=== PATIENT | female | born 1985 | race Caucasian/White ===

== ENCOUNTER → 2018-10-26 15:37 | Outpatient (CLI) | payer OTHER, SELFPAY ==
[2018-10-26 16:01] LABS: Absolute Lymphocyte Count 3.18 X10^3/ul (0.83-4.51); Absolute Neutrophil Count 6.4 X10^3/uL (2.0-7.7); Basophil# 0.03 X10^3/uL; Basophil% 0.3 % (0-1); Eosinophil# 0.17 X10^3/uL; Eosinophils% 1.7 % (0-5); Hematocrit 37.9 % (37-47); Hemoglobin 12.7 g/dl (12.0-15.0); Lymphocyte # 3.18 X10^3/ul (4.0); Lymphocyte % 30.9 % (19-41); Mean Corp Hgb Conc 33.5 g/gl (32-36); Mean Corpuscular Hgb 30.5 pg (27.0-32.0); Mean Corpuscular Volume 91.1 fL (81-99); Mean Platelet Vol. 9.2 fl (6.2-12.0); Monocyte# 0.45 X10^3/uL; Monocyte% 4.4 % (0-10); Neutrophil # 6.42 X10^3/uL (2.7-7.7); Neutrophil % 62.3 % (47-70); Platelet Count 355 K/mm3 (150-450); RBC Distribution Width CV 16.8 % (11.6-14.6); RBC Distribution Width SD 55.9 fl (35.1-43.9); Red Blood Count 4.16 M/mm3 (4.2-5.4); White Blood Count 10.3 K/mm3 (4.4-11.0)
[2018-10-26 16:18] LABS: POSITIVE COUNT NO; POSITIVE DIFFERENTIAL NO; POSITIVE MORPHOLOGY NO
[2018-10-26 16:36] LABS: Ferritin 98 ng/mL (8-252); Iron 93 ug/dL (50-170); Iron Binding Capacity,Total 301 ug/dL (250-450); PERCENT IRON SATURATION 30.9 % (15.0-55.0)
[2018-10-26 16:46] LABS: Vitamin B12 513 pg/mL (211-911)
== END ==
PROVIDERS: Family Provider Family Medicine; PCP Family Medicine; Referring Provider Internal Medicine Hematology & Oncology; Visit Provider Internal Medicine Hematology & Oncology
DX: D51.9 Vitamin B12 deficiency anemia, unspecified (principal)
CPT/HCPCS: 36415; 82607; 82728; 83540; 83550; 85025

== ENCOUNTER → 2019-05-09 | Outpatient (CLI) | payer OTHER, SELFPAY ==
[2018-11-10 10:37] VITALS: BMI 33.4
--- NOTE | 2019-05-09 | IMM_PTH ---
PATIENT: KIA OLIVIER LOC: [facility] U#:[id number] AGE/SX: 34/F ROOM: RE05/09/[address]: Dr. Yoanna Jarquin MD : 1985 BED: DIS: 05/09/2019 SPEC #: [id number] RECD: 05/12/19 07:23 STATUS: LISA REQ #: [id number] COLE: 05/09/19 00:[address]: Yoanna Jarquin DEPT: IMMUNOHISTOCHEMISTRY RECD BY: Deysi Greer ENTERED: 05/12/19 07:25 SP TYPE: IMMUNO OTHR DR: Dr. Bong La MD Tissues: A - Thyroid gland, NOS C - Thyroid gland, NOS Procedures: HBME (initial) CD56 (add) CK19 (add) GAL-3 (add) PHYSICIAN & INSTITUTION [place] [id number] SPECIMEN INFORMATION: Tissue Source: A - Right thyroid, C - Left thyroid Clinical Info: Bilateral thyroid nodules Specimen Number: [id number] A & C CPT code: 42397 x2, 74618 x6 METHODOLOGY: Deparaffinized sections of prefer/formalin-fixed tissue or PAP/DQ stained slides are incubated with monoclonal/polyclonal antibodies/oligonucleotide probes. Localization is made via biotin free immunoperoxidase method. Appropriate controls are performed and reacted as expected. Results on target cell population are indicated in the following table: RESULTS: ANTIBODY / CLONE RESULT Block A GAL3 (9C4) negative HBME1 (HBME-1) negative CK19 (A53-B/A2.26) positive, focal CD56 (123C3.D5) positive Block B GAL3 (9C4) negative HBME1 (HBME-1) positive CK19 (A53-B/A2.26) positive CD56 (123C3.D5) positive, focal These tests were developed and their performance characteristics determined by [facility]. They may not have been cleared or approved by the U.S. Food and Drug Administration. The FDA has determined that such clearance or approval is not necessary. INTERPRETATION: A. Right thyroid, ultrasound-guided FNA: Atypical follicular cells of undetermined significance. B. Left thyroid, ultrasound-guided FNA: Atypical follicular cells of undetermined significance. SJ:linnea 05/15/19 Case has been reviewed in consultation with Dr. Kidd who concurs with the above diagnosis. IDC:[email or web address]
--- NOTE | 2019-05-09 | FLU_PTH ---
PATIENT: KIA OLIVIER LOC: [facility] U#:[id number] AGE/SX: 34/F ROOM: RE05/09/[address]: Dr. Yoanna Jarqiun MD : 1985 BED: DIS: 05/09/2019 SPEC #: [id number] RECD: 05/09/19 13:55 STATUS: LISA RERadha #: [id number] COLE: 05/09/19 00:[address]: Yoanna Jarquin DEPT: CYTOLOGY RECD BY: Luis Antonio Butler ENTERED: 05/09/19 13:56 SP TYPE: Fluid OTHR DR: Dr. Bong La MD Tissues: A - Thyroid gland, NOS B - Thyroid gland, NOS C - Thyroid gland, NOS D - Thyroid gland, NOS Procedures: Special Stain Group II Surgery Specimen Level IV Cytospin Fluid HEADER OPERATION: Ultrasound-guided fine needle aspiration, bilateral thyroid PRE-OP DIAGNOSIS: Bilateral thyroid nodules TISSUE SUBMITTED: A - Right thyroid FNA fluid for cytology, B - Right thyroid FNA slides x6, C - Left thyroid FNA fluid for cytology, D - Left thyroid FNA slides x8 DIAGNOSIS CYTOLOGY A. Right thyroid nodule fluid for cytology (cytospin and cell block): Atypical follicular cells of undetermined significance. See comment. B. Right thyroid nodule, FNA (smears): Atypical follicular cells of undetermined significance.. Adequate for evaluation. C. Left thyroid nodule fluid for cytology (cytospin and cell block): Atypical follicular cells of undetermined significance. See comment. D.. Left thyroid nodule, FNA (smears): Atypical follicular cells of undetermined significance. Adequate for evaluation. SJ:linnea 05/10/19 COMMENT Correlation with clinical, radiologic findings and appropriate follow up are necessary. A & C. Immunohistochemistry ([id number]) supports the above diagnosis. D. Abundant colloid is also noted. Correlation with clinical, radiologic findings and appropriate follow up are necessary. Case has been reviewed in consultation with Dr. Kidd who concurs with the above diagnosis. IDC:AM CYTOLOGY STUDY Slides are reviewed. CYTOLOGY GROSS A - Received is 35 ml of cloudy brown fluid labeled with the patient's name and and designated per the requisition as right thyroid. Submitted for cytology preparation including cell block. B - Received are six smears labeled with the patient's name and designated per the requisition as right thyroid. Submitted for staining. C - Received is 35 ml of cloudy brown fluid labeled with the patient's name and and designated per the requisition as left thyroid. Submitted for cytology preparation including cell block. D - Received are eight smears labeled with the patient's name and designated per the requisition as left thyroid. Submitted for staining. 05/09/19 TC:5 CPT: 60066 x2, 95466 x2, 79157 x2
== END | disposition home or self-care (01) ==
LOC: LAB 12:10 → LABSPEC 12:14
PROVIDERS: Family Provider Family Medicine; PCP Family Medicine; Referring Provider Surgery; Visit Provider Surgery
DX: E04.2 Nontoxic multinodular goiter (principal)
CPT/HCPCS: 88108; 88305; 88313; 88341; 88342

== ENCOUNTER 2019-06-05 07:24 | Observation (INO) | payer OTHER, SELFPAY ==
[2018-11-10 10:37] VITALS: BMI 33.4
--- NOTE | 2019-06-04 16:40 | HP.PCM_ITS ---
History and Physical Date of Admission: 06/05/19 Esme Valdes 1985 ? ? REFERRING PHYSICIAN: Bong La MD ? CHIEF COMPLAINT: Consult ? HPI: The patient is a 34 year old female who is found to have multinodular thyroid with FNA findings of atypia. The patient denies globus symptoms. She denies unusual radiation exposure. She denies swallowing difficulties. She denies new onset hoarseness. Denies TOB use. Denies taking any thyroid hormones. Denies history of thyroiditis. Strong family history of thyroid cancer - three members of family - mother, sister and grandparent. ? US thyroid 04/25/19 RESULT: Right lobe 4.8 x 1.8 x 2.1 cm . Left lobe 4.4 x 1.3 x 1.4 cm . Isthmus 0.3 cm. Thyroid texture: Heterogeneous Nodules: (If there are nodules present than measurements of largest ones given below) Right lobe: Question of a nearly isoechoic area of nodularity in the midpole measures 1.5 to 0.7 cm Left lobe: Complex nodule which is predominantly solid lower pole measuring 1.0 x 0.7 cm Isthmus: None . ? FNA of right and left thyroid nodules. Pathology - atypical follicular cells ? ? PAST MEDICAL HISTORY ? Depression, major, recurrent, mild (HCC) 10/19/2018 ? Encounter for gynecological examination 04/25/2019 ? Seeing Dr. Nebwerry at [facility] ? Family history of colon cancer in mother 04/25/2019 ? And MGF: Patient with colonoscopy at age 28 and is to get repeat at age 38. ? Family history of thyroid disease 10/19/2018 ? Cancer in sister and mom ? ЮЛИЯ (generalized anxiety disorder) 10/19/2018 ? OCD (obsessive compulsive disorder) ? ? depression ? ? PTSD (post-traumatic stress disorder) ? ? Spherocytosis (familial) (HCC) 04/25/2019 ? Seeing Hematology at [facility] ? PAST SURGICAL HISTORY ? CHOLECYSTECTOMY HX ? 2007 ? FECAL OCCULT BLOOD TEST ? 04/28/2019 ? negative ? PAST SURGICAL HISTORY OF ? 04/2018 ? Myomectomy for a fibroid ? PAST SURGICAL HISTORY OF ? 06/2017 ? ? ? Current Outpatient Medications: Norgestimate-Ethinyl Estradiol 0.18/0.215/0.25 mg-25 mcg tab Take 1 tablet by mouth. FLUoxetine HCl (PROZAC) 40 mg capsule Take 1 capsule by mouth once daily. ? ? ALLERGIES: Patient has no known allergies. ? PERSONAL HISTORY: Social History Socioeconomic History Marital status: Smoking status: Never Smoker Alcohol use: Yes Drug use: No ? FAMILY HISTORY ? Colon Cancer Mother 50 ? Diabetes Mother ? ? Hypertension Mother ? ? Hyperlipidemia Mother ? ? Thyroid Cancer Mother ? ? other (Uterine abnomality) Mother ?? may of been uterine cancer ? other (sperocytosis) Mother ? ? Colon Cancer Maternal Grandfather 70 ? Coronary Artery Disease Maternal Grandfather ?? late 60's ? Diabetes Maternal Grandfather ? ? Hypertension Maternal Grandfather ? ? Hyperlipidemia Maternal Grandfather ? ? COPD Father ? ? Seizures Father ? ? Alcohol/Drug Father ?? Alcoholic ? Thyroid Cancer Sister ? ? Breast Cancer Maternal Grandmother ? ? Kidney Disease Paternal Uncle ?? Had a transplant ? Alzheimer's Disease No Family History ? ? Prostate Cancer No Family History ? ? Other Sleep Disorder No Family History ? ? Stroke No Family History ? ? ? REVIEW OF SYSTEMS: General: The patient denies fatigue, denies weight loss, denies weight gain, denies feeling hot, and denies feelings of cold. Eyes: The patient denies glaucoma, denies eye injury/surgery, wears glasses or contacts. Ear/Nose/Throat: The patient notes allergies, denies hayfever, notes ear i nfections, and denies bloody noses. Cardiovascular: The patient denies chest pain, denies heart disease, notes high blood pressure,denies cardiac stent, denies prior heart attack, denies irregular heart beat, denies high cholesterol, denies poor circulation, denies heart failure, other cardiac issues, denies claudication, denies cold feet, denies peripheral arterial stent. Respiratory: The patient denies tuberculosis, denies pneumonia, denies frequent cough, denies pulmonary embolism, denies shortness of breath, and denies coughing up blood. Gastrointestinal: The patient denies difficulty swallowing, notes acid reflux, denies ulcers, denies vomiting, denies jaundice/hepatitis, notes gallbladder problems, denies black or tarry stools, notes hemorrhoids, denies bleeding from rectum, denies diverticulitis, denies constipation, denies diarrhea, denies loss of stool control, and denies hernias. Kidney/Bladder: The patient denies kidney stones, denies urine infections, and denies bloody urine. Skin: The patient denies a history of skin cancer, denies bleeding/changing moles, and denies a history of skin rash. Neurologic: The patient denies a history of epilepsy/convulsions, denies headaches, denies head/spinal injuries, and denies stroke/TIA. Psychiatric: takes prozac notes depression, and denies voices, denies substance abuse. Endocrine: The patient denies thyroid disorders, denies diabetes, and denies hormonal problems. Hematologic: The patient denies a history of bruising, denies bleeding, and notes anemia, denies blood clots. Infections: The patient denies a history of measles and mumps, denies rheumatic fever, and notes sexually transmitted diseases. Musculoskeletal: The patient denies back pain/injury, denies back problems, denies sciatica, denies knee/foot trouble, denies arthritis, or denies gout. ? PHYSICAL EXAMINATION: General: The patient is 34 year old female, well nourished, well hydrated in no acute distress. The patient is oriented to time, place, and person. VITALS: Blood pressure 108/68, pulse 78, temperature 36.4 ?C (97.5 ?F), temperature source Temporal Artery, height 160 cm (5' 3), weight 83.6 kg (184 lb 6.4 oz), SpO2 100 %. Body mass index is 32.66 kg/m?. Head ? Normocephalic. EOM intact with sclera clear and no icterus noted. Mouth with mucus membranes moist. Neck - supple with no jugular venous distention noted. Trachea is midline. No carotid bruits noted. No thyroid enlargement or thyroid nodules detected. No masses noted. Lungs ? clear to auscultation. Inspiration upon command. Normal breath sounds in all lung de [place]. No rales/rhonchi/wheezing noted. No labored breathing noted, such as retractions. No cough heard. Heart ? normal S1 and S2 auscultated. No rubs/clicks/murmurs noted. Regular rhythm. Abdomen ? soft and benign. Normal bowel sounds. Difficult to determine if any masses or organomegaly due to body habitus. Extremities ? no calf tenderness noted. No pitting edema noted. Skin ? normal skin integrity. Lymph ? no cervical adenopathy detected, no supraclavicular adenopathy detected, no axillary adenopathy detected Neurological ? gait normal, no focal deficits noted Psych ? calm and appropriate RADIOLOGIC STUDIES: As Noted ? ? IMPRESSION: thyroid neoplasia of uncertain behavior, strong history of thyroid cancer (3 family members) ? PLAN: I have discussed the above with the patient. I have discussed the above with the patient and her who is present with her. I have explained the pathology of thyroid cancer to them. I have recommended total thyroidectomy. I have told the patient that she will have to be on lifelong thyroid medications. I have described the surgery to the patient in layman?s terms. I have counseled the patient as to the risks of surgery, including but not limited to: infection, bleeding, seroma, scar tissue, cosmetic deformity, injury to any blood vessels/nerves, injury to the recurrent laryngeal nerves and their sequelae, injury to the parathyroid glands and their sequelae, bleeding requiring further surgery, etc. ? the patient understands She wishes to proceed. I have answered all questions to the patient?s satisfaction and the patient has no further questions. ? Return to Clinic: The patient is instructed to follow-up with me after the above procedure.
[2019-06-05] VITALS (10 sets, daily range): BP systolic 94–124; BP diastolic 57–67; PULSE 66–99; RESP 16–18; TEMP 36.4–37.3; O2SAT 92–98; BMI 33.0
--- NOTE | 2019-06-05 | THYROID_PTH ---
PATIENT: KIA OLIVIER LOC: [facility] U#:[id number] AGE/SX: 34/F ROOM: MS319 RE06/05/[address]: Dr. Yoanna Jarquin MD : 1985 BED: 1 DIS: 06/06/2019 SPEC #: [id number] RECD: 06/05/19 13:29 STATUS: LISA RERadha #: [id number] COLE: 06/05/19 00:[address]: Yoanna Jarquin DEPT: SURGICAL PATHOLOGY RECD BY: Luis Antonio Butler ENTERED: 06/05/19 13:30 SP TYPE: THYROID OTHR DR: Dr. Bong La MD Tissues: A - Thyroid gland, NOS B - Thyroid gland, NOS Procedures: Surgery Specimen Level V HEADER OPERATION: Total thyroidectomy PRE-OP DIAGNOSIS: Thyroid neoplasia TISSUE SUBMITTED: A - Left thyroid lobe, B - Right thyroid lobe MICROSCOPIC DIAGNOSIS A. Left thyroid lobe, lobectomy: Papillary thyroid carcinoma. See cancer check list below. B. Right lobe of thyroid, lobectomy: Colloid nodules. Adenomatoid nodule. AM:salvador 06/07/19 AM:linnea 06/08/19 COMMENT Pathology Cancer Summary Thyroid gland: resection Procedure: Total thyroidectomy Specimen integrity: Two specimen (A & B) Specimen: Right lobe - 4.5 x 2.5 x 2.0 cm (8.2 grams) Left lobe - 6.0 x 2.5 x 1.8 cm (9.2 grams) Tumor focality - Unifocal ( Left lobe) Tumor: Tumor laterality - left lobe. Tumor size - 1.2 x 0.5 x 0.4 cm. Histologic type - classical. Architecture - classical. Cytomorphology - classical. Margins: Involved by carcinoma (focal posterior margin) Tumor capsule - present, partial Lymph vascular invasion - not identified. Capsular invasion - present. Extrathyroidal extension - Unknown. No tissue present beyond the positive posterior margin Lymph nodes - one microscopic perithyroidal lymph node with metastatic papillary carcinoma: Size of lymph node - 1.5 millimeters Size of metastasis - 1.0 millimeters. Distant metastasis - unknown Pathologic staging: pT1b, N1a, MX Immunohistochemistry ([id number]) supports the above diagnosis. Fragments of parathyroid tissue are identified in sections of the right lobe and the left lobe. Clinical correlation is suggested. MICROSCOPIC DESCRIPTION Slides are reviewed. GROSS DESCRIPTION A. Received in fixative is one container labeled with the patient's name and designated left thyroid lobe. Received is a thyroid lobectomy specimen measuring 4.5 x 2.5 x 2 cm. No extended parathyroid tissue is identified. This specimen weighs 8.2 grams. The specimen is inked as follows: anterior surface - black; posterior surface - blue; isthmic margin - yellow. Serial sections reveal gelatinous nodule in the lower portion of the thyroid lobe measuring 2.3 and is 0.6 cm in greatest dimension. The entire specimen is submitted in 8 cassettes as follows: 1 - most superior margin, 8 containing most inferior margin. B. Received in fixative is one container labeled with the patient's name and designated right thyroid lobe. Received is a thyroid lobectomy specimen measuring 6 x 2.5 x 1.8 cm and weighs 9.2 grams. No extended parathyroid tissue is identified. The specimen is inked as follows: Anterior surface - black posterior margin blue, isthmic margin yellow. Serial section revealed a espinal-pink nodule in the central portion of the thyroid lobe measuring 1 x 0.7 x 0.5 cm. The entire specimen is submitted in 8 cassettes as follows: 1 - most superior portion of the thyroid lobe; 8 - most inferior portion of the thyroid lobe. /TATY:salvador 06/06/19 TC: 0 CPT: 85939 x2
--- NOTE | 2019-06-05 | THYROID_PTH ---
PATIENT: KIA OLIVIER LOC: [facility] U#:[id number] AGE/SX: 34/F ROOM: MS319 RE06/05/[address]: Dr. Yoanna Jarquin MD : 1985 BED: 1 DIS: 06/06/2019 SPEC #: [id number] RECD: 06/05/19 13:29 STATUS: LISA RERadha #: [id number] COLE: 06/05/19 00:[address]: Yoanna Jarquin DEPT: SURGICAL PATHOLOGY RECD BY: Luis Antonio Butler ENTERED: 06/05/19 13:30 SP TYPE: THYROID OTHR DR: Dr. Bong La MD Tissues: A - Thyroid gland, NOS B - Thyroid gland, NOS Procedures: Surgery Specimen Level V HEADER OPERATION: Total thyroidectomy PRE-OP DIAGNOSIS: Thyroid neoplasia TISSUE SUBMITTED: A - Left thyroid lobe, B - Right thyroid lobe MICROSCOPIC DIAGNOSIS A. Left thyroid lobe, lobectomy: Papillary thyroid carcinoma. See cancer check list below. B. Right lobe of thyroid, lobectomy: Colloid nodules with ____ nodules. Adenomatoid nodule. AM:salvador 06/07/19 COMMENT Pathology Cancer Summary Thyroid gland: resection Procedure: Total thyroidectomy Specimen integrity: Two specimen (A & B) Specimen: Right lobe - 4.5 x 2.5 x 2.0 cm (8.2grams) Left lobe - 6.0 x 2.5 x 1.8 cm (9.2grams). Tumor focality - Unifocal,( Left lobe) Tumor: Tumor laterality - left lobe. Tumor size - 1.2 x 0.5 x 0.4 cm. Histologic type - classical. Architecture - classical. Cytomorphology - classical. Margins: Involved by carcinoma (focal posterior margin) Tumor capsule - present, partial Lymph vascular invasion - not identified. Capsular invasion - present. Extrathyroidal extension - Unknown. No tissue present beyond the positive posterior margin Lymph nodes - one microscopic perithyroidal lymph node with metastatic papillary carcinoma: Size of lymph node - 1.5 millimeters Size of metastasis - 1.0 millimeters. Distant metastasis - unknown Pathologic staging: pT1b, N1a, MX Immunohistochemistry ([id number]) supports the above diagnosis. Fragments of parathyroid tissue are identified in sections of the right lobe and the left lobe. Clinical correlation is suggested . MICROSCOPIC DESCRIPTION Slides are reviewed. GROSS DESCRIPTION A. Received in fixative is one container labeled with the patient's name and designated left thyroid lobe. Received is a thyroid lobectomy specimen measuring 4.5 x 2.5 x 2 cm. No extended parathyroid tissue is identified. This specimen weighs 8.2 grams. The specimen is inked as follows: anterior surface - black; posterior surface - blue; isthmic margin - yellow. Serial sections reveal gelatinous nodule in the lower portion of the thyroid lobe measuring 2.3 and is 0.6 cm in greatest dimension. The entire specimen is submitted in 8 cassettes as follows: 1 - most superior margin, 8 containing most inferior margin. B. Received in fixative is one container labeled with the patient's name and designated right thyroid lobe. Received is a thyroid lobectomy specimen measuring 6 x 2.5 x 1.8 cm and weighs 9.2 grams. No extended parathyroid tissue is identified. The specimen is inked as follows: Anterior surface - black posterior margin blue, isthmic margin yellow. Serial section revealed a espinal-pink nodule in the central portion of the thyroid lobe measuring 1 x 0.7 x 0.5 cm. The entire specimen is submitted in 8 cassettes as follows: 1 - most superior portion of the thyroid lobe; 8 - most inferior portion of the thyroid lobe. /TATY:salvador 06/06/19 TC: 0 CPT: 05031 x2
--- NOTE | 2019-06-05 | IMM_PTH ---
PATIENT: KIA OLIVIER LOC: [facility] U#:[id number] AGE/SX: 34/F ROOM: MS319 RE06/05/[address]: Dr. Yoanna Jarquin MD : 1985 BED: 1 DIS: 06/06/2019 SPEC #: [id number] RECD: 06/07/19 11:27 STATUS: LISA REQ #: [id number] COLE: 06/05/19 00:[address]: Yoanna Jarquin DEPT: IMMUNOHISTOCHEMISTRY RECD BY: David Ibanez ENTERED: 06/07/19 11:29 SP TYPE: IMMUNO OTHR DR: Dr. Bong La MD Tissues: Thyroid gland, NOS Procedures: CD56 (add) CK19 (add) GAL-3 (add) HBME (add) CD56 (initial) PHYSICIAN & INSTITUTION [place] [id number] SPECIMEN INFORMATION: Tissue Source: A. Left thyroid lobe, B. Right thyroid lobe Clinical Info: Thyroid neoplasia Specimen Number: [id number] A4, A7, B5 CPT code: 18654 x2, 55642 x10 METHODOLOGY: Deparaffinized sections of prefer/formalin-fixed tissue or PAP/DQ stained slides are incubated with monoclonal/polyclonal antibodies/oligonucleotide probes. Localization is made via biotin free immunoperoxidase method. Appropriate controls are performed and reacted as expected. Results on target cell population are indicated in the following table: RESULTS: ANTIBODY / CLONE RESULT Block A4 CD56 (123C3.D5) negative GAL3 (9C4) positive HBME1 (HBME-1) positive CK19 (A53-B/A2.26) positive Block A7 CD56 (123C3.D5) negative GAL3 (9C4) positive HBME1 (HBME-1) positive CK19 (A53-B/A2.26) positive, focal Block B5 CD56 (123C3.D5) positive GAL3 (9C4) negative HBME1 (HBME-1) negative CK19 (A53-B/A2.26) negative These tests were developed and their performance characteristics determined by [facility]. They may not have been cleared or approved by the U.S. Food and Drug Administration. The FDA has determined that such clearance or approval is not necessary. INTERPRETATION: A. Left lobe of thyroid, lobectomy: Papillary thyroid carcinoma of right lobe. One out of one lymph node positive for metastatic papillary carcinoma. B. Right lobe of thyroid, lobectomy: Adenomatoid nodule. AM:linnea 06/08/19 Case has been reviewed in consultation with Dr. Washington who concurs with the above diagnosis. IDC:SJ
[2019-06-05 06:23] LABS: Internal QC Validated? YES +Cl - CLEAR BKGD; Pregnancy, Urine Negative Negative
--- NOTE | 2019-06-05 09:48 | OP.PCM_ITS ---
Report of Operation Date of Procedure: 06/05/19 Pre-Operative Diagnosis: atypical FNA of right and left thyroid nodules, strong family history of thyroid cancer Post-Operative Diagnosis: same Surgery/Procedure Performed:: total thyroidectomy Description of Surgical Findings:: nodular thyroid tissue, slight thyroid goiter on left lobe, slight inflammatory changes manager php: Gina Lutz Type of Anesthesia:: General Anesthesiologist: Adelaida Ledbetter Specimen's removed: right and left thyroid lobes and isthmus Estimated Blood Loss (mL): 5-10 ml Fluids Replaced: 1200 ml RL Description of Procedure: After informed consent was obtained, the patient was brought to the Operating Room. Appropriate time out protocol was followed. She was then placed in the supine position. She was then placed under GETA. The patient was then positioned with arms tucked and appropriate padding, with neck extension, and in the slightly reverse Trendelenburg position. The US machine was used. The US transducer was placed on the patient's neck to outline the location of the patient's thyroid gland so as to make the optimum skin incision for thyroidectomy. This was then marked out with a skin marker. The neck and upper chest were then prepped with a sterile surgical skin preparation and appropriate sterile surgical drapes were placed. The landmarks were identified and with the above marked skin, a low cervical collar incision was made with a 15 blade scalpel and carried down to the subcutaneous tissues using Bovie in the electrocautery mode. The platysma was divided along the incision and then flaps were created superiorly to the cricoid cartilage level and inferiorly to the sternal notch. The fascia overlying the strap muscles was then divided along the midline. The left thyroid gland was approached first. The plane between the thyroid gland anterior and the strap muscles posteriorly was then bluntly dissected. Dissection continued layer by layer to identify the inferior pole vessels of the left thyroid gland. The inferior pole vessels were identified and there was a nodular density in this area that was felt to be a palpable lymph node, therefore this tissue in its entirety was also dissected from its surrounding attachments. The vessels were ligated with ligaclips and then transected. Of note, the left thyroid gland was enlarged and was nodular. The middle thyroid vein was identified and was transected with the Harmonic scalpel. The inferior pole was then bluntly dissected free and the surrounding investiture. The left lobe of the thyroid thus could be retracted medially. Attention was then directed to the superior pole of the thyroid gland. The superior pole vessels were then ligated adjacent to the thyroid lobe in order to prevent damage to the superior laryngeal nerve. The superior parathyroid gland was identified and noted to be isolated and dusky in coloration. Therefore it was resected and reimplanted in the left thyroid strap muscle. The thyroid gland was appearing ischemic and shrunk in size and the gland could be further retracted medially. The recurrent laryngeal nerve was identified. Because of the size of the thyroid gland, the nerve was almost embedded within it and careful dissection was required to prevent any injury to it. It is of note that the thyroid appeared to have slight inflammation consistent with thyroiditis type presentation. Also was noted that the surrounding tissues appeared to be more adherent to the thyroid gland than usual. The inferior parathyroid gland was identified and noted to be normal. It was carefully left in place, avoiding any injury to it. Once the thyroid tissue was free from the attachments to the trachea with the recurrent laryngeal nerve protected and dissection continued. The thyroid gland - left lobe was then transected and forwarded to pathology. Attention was now directed to the right thyroid gland. The superior pole vessels were taken were dissected out individually and then ligaclips were placed and then the vessels were transected. The superior parathyroid gland was identified and kept away from injury to it. Dissection continued close to the thyroid wall. The thyroid gland was then rotated medially the middle vein was identified and transected with the Harmonic scalpel. The inferior pole was then identified and the vessels were ligated with ligaclips. The recurrent laryngeal nerve was then identified along its course and protected from injury. The superior pole was then retracted inferiorly and the pole vessels were ligated with ligaclips and then transected. The inferior parathyroid gland was identified and normal appearing, It was protected and retracted out of the way of dissection. The right lobe seemed to extend more superiorly than the left lobe. The thyroid gland was rotated medially and then dissected off the trachea. This was carefully done to avoid any injury to the recurrent laryngeal nerves. The inferior parathyroid gland and was identified and also protected. The right thyroid gland was then completely removed and forward to pathology for analysis. Hemostasis was carefully controlled with electrocautery avoiding any injury to the recurrent laryngeal nerves and the parathyroid glands. Because there is some bleeding still near the area of the recurrent laryngeal nerve , Surgicel was used for hemostasis. The fascia of the strap muscles was then reapproximated along the midline using Vicryl suture. The platysma muscle was then reapproximated in a transverse fashion using interrupted 2-0 Vicryl suture. The skin incision was then reapproximated using 4-0 Monocryl in a running subcuticul ar fashion. The skin closure was reinforced using Dermibond. Patient was brought to Recovery Room in stable condition.. - Complications none noted - Admit VTE Documentation VTE Present on Admission: Yes VTE Mechan Device Prophylaxis: SCD's
[2019-06-05] MEDS: Calcium Carbonate 500 MG Tablet PO ×2 (14:09→18:30)
[2019-06-05] MEDS: BENZOCAINE/MENTHOL 1 LOZENGE MUCOUS MEM (16:43)
[2019-06-05] MEDS: HYDROcodone Bitartrate/Apap 5/325 Tablet PO (16:43)
[2019-06-05] MEDS: Lactated Ringers 1,000 ML 75 ML IV (16:43)
[2019-06-05] MEDS: Acetaminophen 325 MG Tablet 650 MG PO (21:50)
[2019-06-05] MEDS: Temazepam 15 MG Capsule 30 MG PO (21:54)
[2019-06-06] MEDS: Lactated Ringers 1,000 ML 75 ML IV (03:38)
[2019-06-06 03:40] VITALS: BP 105/59; PULSE 84; RESP 16; TEMP 36.8; O2SAT 93
[2019-06-06] MEDS: HYDROcodone Bitartrate/Apap 5/325 Tablet PO (06:20)
[2019-06-06] MEDS: Levothyroxine 150 MCG Tablet PO (06:20)
[2019-06-06 06:47] LABS: Calcium,Total 8.1 mg/dL (8.5-10.1)
--- NOTE | 2019-06-06 07:05 | PCM.PN.SRG ---
Subjective: patient feeling hoarse, but more so hoarseness from tube irritation, not the breathless hoarseness from vocal cord problems - Physical Exam General: Alert, Oriented x3 Oral: Moist Mucosa Neck: Supple, - - wound without swelling/drainage, it is intact Vital Signs Temp Pulse Resp BP Pulse Ox 98.3 F 84 16 105/59 L 93 06/06/19 03:40 06/06/19 03:40 06/06/19 03:40 06/06/19 03:40 06/06/19 03:40 Oxygen Delivery Method Room Air Weight: 81.9 kg Body Mass Index (BMI) 33.0 Intake and Output for Last 24 Hours 06/04/19 06/05/19 06/06/19 23:59 23:59 23:59 Intake Total 2983 / 2983 492 / 492 Output Total 400 / 400 Balance 2983 / 2983 92 / 92 Laboratory Tests Past 24 Hrs 06/06/19 06:02 Calcium 8.1 L Medical Necessity - Tobacco Use Smoking Status: Never smoker Tobacco Use: Non-smoker Assessment/Plan All Active Problems (Last Reviewed 11/10/18 @ 10:31 by Marycruz Blanco) Abdominal pain affecting , antepartum (Acute) Anemia (Acute) Thrombocytosis (Resolved) status post total thyroidectomy Plan: Discharge to home, follow up with me in one week.
--- NOTE | 2019-06-06 07:06 | DCINST_ITS ---
Discharge Diet: No Restrictions Discharge Activity: Return to Normal Activity, May not drive while taking narcotic pain medications. Additional Activity Instructions:: May shower Call your doctor if your incision/area has: Continuous Slow Oozing, Foul Smelling Discharge Call your doctor if you observe: Fever of 101 or Higher Additional Dressing/Incision Instructions:: Leave dressing in place. May shower - do not scrub hard in area. Rinse and pat dry. Do not soak - no tub baths/swimming Additional Instructions: Recommended pain medication regimen; Take 600 mg ibuprofen (Motrin) then in three hours take 650 mg acetaminophen (Tylenol) then in 3 hours take 600 mg ibuprofen then in three hours take 650 mg acetaminophen, for 1-2 days take narcotic pain medication for breakthrough pain and at night Take two TUMS with calcium twice a day until further notic Allergies/Adverse Reactions: Allergies No Known Allergies Allergy (Verified 06/05/19 06:19) Medications to take at Discharge Docusate Sodium [Colace] 100 mg PO BID PRN PRN #60 capsule 01/28/17 Cyanocobalamin (Vitamin B-12) [Vitamin B-12] 100 mcg PO DAILY 07/15/17 Ferrous Sulfate 324 mg PO DAILY 07/15/17 Fluoxetine HCl 40 mg PO DAILY 07/15/17 Folic Acid 1 mg PO DAILY 05/29/19 Norgestimate-Ethinyl Estradiol [Ortho-Cyclen] 1 ea PO DAILY 05/29/19 Hydrocodone Bitart/Apap 5-325 [[place] 5MG-325MG] 1 tab PO Q8H PRN PRN 5 Days #15 tab 06/06/19 Levothyroxine [Synthroid] 150 mcg PO DAILY 30 Days #30 tab 06/06/19 The following prescriptions were given: Hydrocodone Bitart/Apap 5-325 [[place] 5MG-325MG] 1 tab PO Q8H PRN PRN 5 Days #15 tab PRN Reason: Mod-Severe Pain (4-10) Prescription Printed Levothyroxine [Synthroid] 150 mcg PO DAILY 30 Days #30 tab Prescription Printed Primary Care Physician: Bong La MD [Primary Care Provider] - Test Results: Test results from this visit will be discussed in further detail at your follow- up appointment, if applicable. Please Follow Up With: Yoanna Jarquin MD - call When: to be seen in 7-10 days, please call for date and time, thank you
[2019-06-06 08:05] VITALS: BP 91/51; PULSE 70; RESP 16; TEMP 36.9; O2SAT 95
[2019-06-06] MEDS: Calcium Carbonate 500 MG Tablet PO (08:12)
[2019-06-06] MEDS: FLUoxetine 20 MG Capsule 40 MG PO (08:12)
[2019-06-06 09:50] VITALS: BP 110/59; PULSE 67; RESP 16; TEMP 37.1; O2SAT 100
== END 2019-06-06 10:40 | disposition home or self-care (01) ==
LOC: MS3 08:21
PROVIDERS: Anesthesiology; Admitting Provider Surgery; Family Provider Family Medicine; PCP Family Medicine; Referring Provider Surgery; Visit Provider Surgery
PROC: (CPT 60240; principal; 2019-06-05 07:15)
DX: C73 Malignant neoplasm of thyroid gland (principal); F43.10 Post-traumatic stress disorder, unspecified; F41.1 Generalized anxiety disorder; Z79.899 Other long term (current) drug therapy; K21.9 Gastro-esophageal reflux disease without esophagitis; Z80.8 Family history of malignant neoplasm of other organs or systems; D58.0 Hereditary spherocytosis; F33.0 Major depressive disorder, recurrent, mild
CPT/HCPCS: 60240; 36415; 81025; 82310; 88307; 88341; 88342; 96360; 96361; 99218; J7120; G0378; G0379; J2405

== ENCOUNTER → 2019-12-22 09:38 | Outpatient (CLI) | payer OTHER, SELFPAY ==
[2019-06-05 06:21] VITALS: BMI 33.0
[2019-12-22 10:47] LABS: Absolute Lymphocyte Count 2.33 X10^3/uL (0.83-4.51); Absolute Neutrophil Count 4.6 X10^3/uL (2.0-7.7); Basophil# 0.05 X10^3/uL; Basophil% 0.7 % (0-1); Eosinophil# 0.15 X10^3/uL; Hematocrit 38.2 % (37-47); Hemoglobin 12.4 g/dL (12.0-15.0); Lymphocyte # 2.33 X10^3/ul (4.0); Lymphocyte % 30.9 % (19-41); Mean Corp Hgb Conc 32.5 g/dL (32-36); Mean Corpuscular Hgb 29.5 pg (27.0-32.0); Mean Platelet Vol. 9.4 fl (6.2-12.0); Monocyte# 0.36 X10^3/uL; Monocyte% 4.8 % (0-10); NRBC Flagged by Analyzer 0 % (0-5); Neutrophil % 60.8 % (47-70); Platelet Count 332 K/mm3 (150-450); RBC Distribution Width CV 17.2 % (11.6-14.6); RBC Distribution Width SD 57.6 fl (35.1-43.9); White Blood Count 7.6 K/mm3 (4.4-11.0)
[2019-12-22 11:20] LABS: Ferritin 198 ng/mL (8-252); Thyroid Stim Hormone (TSH) 0.16 uIU/mL (0.358-3.74)
[2019-12-22 11:22] LABS: Vitamin B12 465 pg/mL (211-911)
== END ==
PROVIDERS: PCP Family Medicine; Referring Provider Internal Medicine Hematology & Oncology; Visit Provider Internal Medicine Hematology & Oncology
DX: D51.9 Vitamin B12 deficiency anemia, unspecified (principal); C73 Malignant neoplasm of thyroid gland
CPT/HCPCS: 36415; 82607; 82728; 84443; 85025

== ENCOUNTER → 2021-04-24 | Outpatient (CLI) | payer OTHER, SELFPAY ==
[2020-01-01 11:01] VITALS: BMI 33.0
[2021-04-29 11:58] LABS: HPV Reflexed? NOT INDICATED
== END | disposition home or self-care (01) ==
LOC: LABSPEC 15:09
PROVIDERS: PCP Family Medicine; Visit Provider Obstetrics & Gynecology
DX: Z12.4 Encounter for screening for malignant neoplasm of cervix (principal)
CPT/HCPCS: 88175; G0145

== ENCOUNTER → 2022-05-20 | Outpatient (CLI) | payer OTHER, SELFPAY ==
[2022-05-20 09:55] LABS: Absolute Lymphocyte Count 1.97 X10^3/uL (0.83-4.51); Absolute Neutrophil Count 4.8 X10^3/uL (2.0-7.7); Basophil# 0.05 X10^3/uL; Basophil% 0.7 % (0-1); Eosinophil# 0.19 X10^3/uL; Eosinophils% 2.5 % (0-5); Hematocrit 33.7 % (37-47); Hemoglobin 11.1 g/dL (12.0-15.0); Lymphocyte # 1.97 X10^3/ul (0.83-4.51); Lymphocyte % 26.3 % (19-41); Mean Corp Hgb Conc 32.9 g/dL (32-36); Mean Corpuscular Hgb 30.7 pg (27.0-32.0); Mean Corpuscular Volume 93.4 fL (81-99); Mean Platelet Vol. 9.6 fl (6.2-12.0); Monocyte# 0.38 X10^3/uL; Monocyte% 5.1 % (0-10); NRBC Flagged by Analyzer 0 % (0-5); Neutrophil # 4.83 X10^3/uL (2.7-7.7); Neutrophil % 64.5 % (47-70); Platelet Count 321 K/mm3 (150-450); RBC Distribution Width CV 18.9 % (11.6-14.6); RBC Distribution Width SD 64.6 fl (35.1-43.9); Red Blood Count 3.61 M/mm3 (4.2-5.4); White Blood Count 7.5 K/mm3 (4.4-11.0)
[2022-05-20 10:24] LABS: Vitamin B12 > 2000 pg/mL (211-911)
[2022-05-20 11:03] LABS: Ferritin 59 ng/mL (8-252); Iron 68 ug/dL (50-170); Iron Binding Capacity,Total 298 ug/dL (250-450); PERCENT IRON SATURATION 22.8 % (15.0-55.0)
== END | disposition home or self-care (01) ==
LOC: LAB 09:27
PROVIDERS: PCP Family Medicine; Visit Provider Internal Medicine Hematology & Oncology
DX: D51.9 Vitamin B12 deficiency anemia, unspecified (principal)
CPT/HCPCS: 36415; 82607; 82728; 82746; 83540; 83550; 85025